=== PATIENT | male | born 1990 | race Caucasian/White ===

== ENCOUNTER 2018-01-19 16:58 | Emergency (ER) | payer OTHER ==
[~2018-01-19] VITALS: Ht 188 cm; Wt 90.7 kg
== END 2018-01-19 17:50 | disposition home or self-care (01) ==
LOC: ER 16:58
DX: S01.21XA Laceration without foreign body of nose, initial encounter (principal); W45.8XXA Other foreign body or object entering through skin, initial encounter; Y93.89 Activity, other specified; Y92.832 Beach as the place of occurrence of the external cause; Y99.8 Other external cause status